=== PATIENT | female | born 1955 | race Caucasian/White ===

== ENCOUNTER 2021-02-05 15:50 | Inpatient (IN) ==
[2021-02-05] MEDS ORDERED: 0.9 % Sodium Chloride 1,000 ML IVC ONE (16:03)
[2021-02-05 16:16] LABS: Basophils # 0.1 K/mcL (0.0-0.2); Basophils % 0.6 %; Eosinophils # 0.2 K/mcL (0.0-0.6); Eosinophils % 1.1 %; Hematocrit 44.8 % (35.3-44.9); Hemoglobin 14.9 g/dL (11.5-15.4); Immature Granulocytes % 0.3 % (0-4); Lymphocytes # 8.2 K/mcL (0.6-4.6); Lymphocytes % 41.2 %; Mean Corpuscular HGB Conc 33.3 g/dL (31.6-35.5); Mean Corpuscular Hemoglobin 28.7 pg (28.0-33.3); Mean Corpuscular Volume 86.2 fL (83.0-100.0); Mean Platelet Volume 9.7 fL (9.4-12.4); Monocytes # 1.3 K/mcL (0.0-1.3); Monocytes % 6.3 %; Platelet Count 366 K/mcL (140-400); Red Cell Distribution Width 13.2 % (11.5-14.5); Segmented Neutrophils % 50.5 %; White Blood Count 19.8 K/mcL (4.3-11.1)
[2021-02-05 16:21] LABS: INR 1.1; Prothrombin Time 12.7 Seconds (9.4-12.1)
[2021-02-05 16:28] LABS: Platelet Estimate Normal (Normal); Reactive Lymphocytes Present (Not Present)
[2021-02-05 16:29] LABS: BUN/Creatinine Ratio 21 (6-26); Blood Urea Nitrogen 14 mg/dL (8-23); Calcium 9.6 mg/dL (8.6-10.3); Carbon Dioxide 24 mEq/L (23-29); Chloride 105 mEq/L (98-107); Glucose 112 mg/dL (70-105); Magnesium 1.2 mg/dL (1.6-2.6); Osmolality,Calculated 289 (280-300); Potassium 3.4 mEq/L (3.5-5.1); Sodium 139 mEq/L (136-145); eGFR For African Americans > 60 (> 60); eGFR For Non-African Americans > 60 (> 60)
[2021-02-05] MEDS ORDERED: *HR* Metoprolol 5 MG/5 ML VIAL IVP ONE (16:32)
[2021-02-05 16:34] LABS: Troponin I < 0.03 ng/mL (< 0.04)
[2021-02-05 16:47] LABS: Thyroid Stimulating Hormone 3.435 mcIU/mL (0.340-5.600)
[2021-02-05 18:39] LABS: Bilirubin,Urine Negative (Negative); Blood,Urine Negative (Negative); Clarity,Urine Slightly Cloudy (Clear); Color,Urine Light Yellow (Yellow); Glucose,Urine (UA) Normal (Normal); Ketones,Urine Negative (Negative); Leukocyte Esterase,Urine Negative (Negative); Nitrite,Urine Negative (Negative); Protein,Urine 100 mg/dL (Neg-Trace); Specific Gravity,Urine 1.015 (1.010-1.025); Urobilinogen,Urine Normal (Normal)
[2021-02-05 18:41] LABS: Amorphous Sediment,Urine Few per hpf (None-Few); Squamous Epithelial Cell,Urine Few per hpf (None-Few)
[2021-02-05] MEDS ORDERED: cloNIDine HCL 0.1 MG TABLET PO ONE (18:42)
[2021-02-05] MEDS ORDERED: *HR* Metoprolol 5 MG/5 ML VIAL IVP PRN ×2 (19:57→20:12)
[2021-02-05] MEDS ORDERED: Naloxone 0.4 MG/ML INJ IVP PRN (20:12)
[2021-02-05] MEDS ORDERED: Ondansetron ODT 4 MG TAB.RAPDIS SL PRN (20:12)
[2021-02-05] MEDS ORDERED: *HR* Rivaroxaban 10 MG TABLET PO ONE (22:45)
[2021-02-06] MEDS: Nicotine 14 MG PATCH.TD24 TD SCH ×2 (00:12→09:19)
[2021-02-06] MEDS: *HR* Metformin 500 MG TABLET PO SCH ×3 (00:16→21:29)
[2021-02-06] MEDS: 0.9 % Sodium Chloride 1,000 ML IVC SCH ×2 (00:19→17:12)
[2021-02-06] MEDS ORDERED: Dextrose Gel 15 GM/37.5 ML TUBE PO PRN ×2 (01:02)
[2021-02-06] MEDS ORDERED: D5% in Water 1,000 ML IVC PRN (01:02)
[2021-02-06] MEDS ORDERED: *HR* Dextrose 50 % in Water (Vial) 50 ML VIAL IVP PRN (01:02)
[2021-02-06] MEDS: Aspirin Enteric Coated 81 MG Tablet PO SCH (09:19)
[2021-02-06] MEDS: lisinopriL 10 MG TABLET PO SCH (09:19)
[2021-02-06] MEDS: Insulin LISPRO 300 UNITS/3 ML VIAL SUBQ SCH ×4 (09:33→21:30)
[2021-02-06] MEDS ORDERED: Perflutren Lipid Microsphere 1.3 ML in 0.9 % Sodium Chloride 8.7 ML IVP PRN (15:07)
[2021-02-06] MEDS: *HR* Rivaroxaban 10 MG TABLET PO SCH (15:30)
[2021-02-06] MEDS: MethylPREDNISolone 40 MG/ML VIAL IVP SCH (15:30)
[2021-02-06] MEDS: levoFLOXacin 750 MG/150 ML 750 MG/150 ML BAG IVPB SCH (15:30)
[2021-02-06] MEDS: Ipratropium/Albuterol Neb 3 ML IH SCH ×3 (18:33→22:31)
[2021-02-06 19:36] LABS: Adenovirus Not Detected (Not Detect); Bordetella Pertussis Not Detected (Not Detect); Chlamydophila pneumoniae Not Detected (Not Detect); Coronavirus 229E Not Detected (Not Detect); Coronavirus HKU1 Not Detected (Not Detect); Coronavirus NL63 Not Detected (Not Detect); Coronavirus OC43 Not Detected (Not Detect); Human Metapneumovirus Not Detected (Not Detect); Human Rhinovirus/Enterovirus Not Detected (Not Detect); Influenza A Subtype 2009 H1 Not Detected (Not Detect); Influenza B Not Detected (Not Detect); Mycoplasma pneumoniae Not Detected (Not Detect); Parainfluenza Virus 1 Not Detected (Not Detect); Parainfluenza Virus 2 Not Detected (Not Detect); Parainfluenza Virus 3 Not Detected (Not Detect); Parainfluenza Virus 4 Not Detected (Not Detect); Respiratory Syncytial Virus Not Detected (Not Detect); SARS-CoV-2 Not Detected (Not Detect)
[2021-02-06] MEDS ORDERED: *HR* Rivaroxaban 10 MG TABLET PO ONE (20:00)
[2021-02-06] MEDS ORDERED: Insulin DETEMIR 100 UNIT/ML X5UNITS SUBQ SCH (21:00)
[2021-02-06] MEDS ORDERED: Insulin DETEMIR 100 UNIT/ML per UNIT SUBQ ONE (21:00)
[2021-02-07] MEDS: MethylPREDNISolone 40 MG/ML VIAL IVP SCH ×3 (00:11→18:04)
[2021-02-07] MEDS: Ipratropium/Albuterol Neb 3 ML IH SCH ×5 (04:22→20:11)
[2021-02-07 06:12] LABS: Hematocrit 42.7 % (35.3-44.9); Hemoglobin 13.7 g/dL (11.5-15.4); Mean Corpuscular HGB Conc 32.1 g/dL (31.6-35.5); Mean Corpuscular Hemoglobin 27.7 pg (28.0-33.3); Mean Corpuscular Volume 86.3 fL (83.0-100.0); Mean Platelet Volume 10.1 fL (9.4-12.4); Platelet Count 324 K/mcL (140-400); Red Blood Count 4.95 M/mcL (3.82-4.97); Red Cell Distribution Width 13.2 % (11.5-14.5); White Blood Count 15.6 K/mcL (4.3-11.1)
[2021-02-07 06:27] LABS: BUN/Creatinine Ratio 25 (6-26); Blood Urea Nitrogen 17 mg/dL (8-23); Calcium 9.1 mg/dL (8.6-10.3); Carbon Dioxide 22 mEq/L (23-29); Chloride 103 mEq/L (98-107); Glucose 237 mg/dL (70-105); Magnesium 1.2 mg/dL (1.6-2.6); Osmolality,Calculated 289 (280-300); Potassium 3.9 mEq/L (3.5-5.1); Sodium 135 mEq/L (136-145); eGFR For African Americans > 60 (> 60); eGFR For Non-African Americans > 60 (> 60)
[2021-02-07] MEDS: Nicotine 14 MG PATCH.TD24 TD SCH (08:03)
[2021-02-07] MEDS: *HR* Metformin 500 MG TABLET PO SCH ×2 (08:03→22:43)
[2021-02-07] MEDS: lisinopriL 10 MG TABLET PO SCH (08:04)
[2021-02-07] MEDS: Aspirin Enteric Coated 81 MG Tablet PO SCH (08:04)
[2021-02-07] MEDS: levoFLOXacin 750 MG/150 ML 750 MG/150 ML BAG IVPB SCH (08:04)
[2021-02-07] MEDS: Insulin LISPRO 300 UNITS/3 ML VIAL SUBQ SCH ×4 (08:05→22:44)
[2021-02-07] MEDS: Acetaminophen 325 MG TABLET PO PRN (09:31)
[2021-02-07 10:41] LABS: Estimated Average Glucose 235 mg/dl; Hemoglobin A1C 9.8 %
[2021-02-07] MEDS: *HR* Rivaroxaban 10 MG TABLET PO SCH (15:56)
[2021-02-07] MEDS: Insulin DETEMIR 100 UNIT/ML X5UNITS SUBQ SCH (22:43)
[2021-02-07] MEDS: Furosemide 20 MG/2 ML VIAL IVP SCH (22:45)
[2021-02-08] MEDS: Ipratropium/Albuterol Neb 3 ML IH SCH ×6 (00:18→20:05)
[2021-02-08] MEDS: hydrALAZINE 10 MG TABLET PO PRN (00:53)
[2021-02-08] MEDS: Acetaminophen 325 MG TABLET PO PRN (03:09)
[2021-02-08 05:19] LABS: Hematocrit 41.9 % (35.3-44.9); Hemoglobin 13.4 g/dL (11.5-15.4); Mean Corpuscular Hemoglobin 27.7 pg (28.0-33.3); Mean Corpuscular Volume 86.6 fL (83.0-100.0); Mean Platelet Volume 10.2 fL (9.4-12.4); Platelet Count 325 K/mcL (140-400); Red Blood Count 4.84 M/mcL (3.82-4.97); Red Cell Distribution Width 13.4 % (11.5-14.5); White Blood Count 25.7 K/mcL (4.3-11.1)
[2021-02-08 05:36] LABS: BUN/Creatinine Ratio 27 (6-26); Blood Urea Nitrogen 20 mg/dL (8-23); Calcium 8.9 mg/dL (8.6-10.3); Carbon Dioxide 24 mEq/L (23-29); Chloride 103 mEq/L (98-107); Glucose 248 mg/dL (70-105); Osmolality,Calculated 293 (280-300); Potassium 3.8 mEq/L (3.5-5.1); Sodium 136 mEq/L (136-145); eGFR For African Americans > 60 (> 60); eGFR For Non-African Americans > 60 (> 60)
[2021-02-08] MEDS: MethylPREDNISolone 40 MG/ML VIAL IVP SCH ×2 (05:59→16:53)
[2021-02-08] MEDS: lisinopriL 10 MG TABLET PO SCH (09:14)
[2021-02-08] MEDS: *HR* Metformin 500 MG TABLET PO SCH ×2 (09:14→20:55)
[2021-02-08] MEDS: Aspirin Enteric Coated 81 MG Tablet PO SCH (09:14)
[2021-02-08] MEDS: levoFLOXacin 750 MG/150 ML 750 MG/150 ML BAG IVPB SCH (09:15)
[2021-02-08] MEDS: Nicotine 14 MG PATCH.TD24 TD SCH (09:15)
[2021-02-08] MEDS: Insulin LISPRO 300 UNITS/3 ML VIAL SUBQ SCH ×4 (09:16→20:55)
[2021-02-08] MEDS: Furosemide 20 MG/2 ML VIAL IVP SCH (09:16)
[2021-02-08] MEDS ORDERED: amLODIPine 5 MG TABLET PO SCH (14:30)
[2021-02-08] MEDS: *HR* Rivaroxaban 10 MG TABLET PO SCH (16:49)
[2021-02-08] MEDS: Insulin DETEMIR 100 UNIT/ML X5UNITS SUBQ SCH (20:56)
[2021-02-08] MEDS ORDERED: amLODIPine 5 MG TABLET PO ONE (21:19)
[2021-02-09] MEDS: Ipratropium/Albuterol Neb 3 ML IH SCH ×3 (00:05→09:30)
[2021-02-09] MEDS: hydrALAZINE 10 MG TABLET PO PRN (00:15)
[2021-02-09 06:04] LABS: Hematocrit 41.3 % (35.3-44.9); Hemoglobin 13.1 g/dL (11.5-15.4); Mean Corpuscular HGB Conc 31.7 g/dL (31.6-35.5); Mean Corpuscular Hemoglobin 27.6 pg (28.0-33.3); Mean Corpuscular Volume 86.9 fL (83.0-100.0); Mean Platelet Volume 10.1 fL (9.4-12.4); Platelet Count 314 K/mcL (140-400); Red Blood Count 4.75 M/mcL (3.82-4.97); Red Cell Distribution Width 13.7 % (11.5-14.5); White Blood Count 23.2 K/mcL (4.3-11.1)
[2021-02-09 06:23] LABS: BUN/Creatinine Ratio 31 (6-26); Blood Urea Nitrogen 21 mg/dL (8-23); Calcium 8.8 mg/dL (8.6-10.3); Carbon Dioxide 25 mEq/L (23-29); Chloride 102 mEq/L (98-107); Glucose 254 mg/dL (70-105); Magnesium 1.8 mg/dL (1.6-2.6); Osmolality,Calculated 292 (280-300); Potassium 3.9 mEq/L (3.5-5.1); Sodium 135 mEq/L (136-145); eGFR For African Americans > 60 (> 60); eGFR For Non-African Americans > 60 (> 60)
[2021-02-09] MEDS: levoFLOXacin 750 MG/150 ML 750 MG/150 ML BAG IVPB SCH (08:31)
[2021-02-09] MEDS: Furosemide 20 MG/2 ML VIAL IVP SCH (08:35)
[2021-02-09] MEDS: *HR* Metformin 500 MG TABLET PO SCH (08:36)
[2021-02-09] MEDS: Aspirin Enteric Coated 81 MG Tablet PO SCH (08:37)
[2021-02-09] MEDS: Nicotine 14 MG PATCH.TD24 TD SCH (08:37)
[2021-02-09] MEDS: Insulin LISPRO 300 UNITS/3 ML VIAL SUBQ SCH ×2 (08:43→11:54)
[2021-02-09] MEDS ORDERED: amLODIPine 5 MG TABLET PO SCH (09:00)
[2021-02-09] MEDS ORDERED: lisinopriL 10 MG TABLET PO SCH (09:00)
[2021-02-09] MEDS ORDERED: predniSONE 20 MG TABLET PO SCH (09:00)
[2021-02-09 11:22] VITALS: BP 147/80
== END 2021-02-09 16:00 | disposition home or self-care (01) | DRG 201 ==
LOC: INPGRE 15:50 → EMEROOGRE 15:50 → INPGRE 20:15
PROVIDERS: ADMIT Family Medicine; ATTEND Family Medicine